=== PATIENT | female | born 1990 | race Caucasian/White ===

== ENCOUNTER 2017-09-26 10:23 | Emergency (ER) | payer MEDICAID, OTHER ==
[~2017-09-26] VITALS: Ht 162.6 cm; Wt 131.5 kg
[2017-09-26 10:24] VITALS: BP 132/76; PULSE 90; RESP 20; TEMP 98.7; O2SAT 100
--- NOTE | 2017-09-26 11:17 | PD ---
HPI Chief Complaint: Facial Pain or Swelling Time Seen by Provider: 11:02 Travel History International Travel<30 days: No Contact w/Intl Traveler<30days: No Traveled to known affect area: No History of Present Illness HPI 22-year-old female patient presents to the ER today because of a bump that appeared on her face in front of the left ear that started a few days ago. She denies any injury to the area, but states that she has had a lot of cough, sinus congestion, sore throat, and this has been going on for many weeks. She has been seen by [facility] and has been on intermittent antibiotics. She denies any recent fevers, ear pain, chest pains, shortness of breath, or any other symptoms. Modifying Factors: None Associated Signs & Symptoms: Bump in front the left ear Risk Factors: Cough, congestion symptoms for past weeks PFSH Past Medical History Medical History: Denies Significant Hx Cancer: No Cardiovascular Problems: No Diabetes: No Diminished Hearing: No Endocrine: Yes Gastrointestinal Disorders: Yes (gallstones; [address] ) Genitourinary: No Hepatitis: No Hiatal Hernia: No Immune Disorder: No Musculoskeletal: No Neurologic: No Psychiatric: Yes (ANXIETY DUE TO CHRONIC HEALTH CONCERNS) Reproductive: No Respiratory: No Immunizations Current: No Thyroid Disease: Yes (HYPOTHYROID - NO TREATMENT REQ'D ) ?: Not : 1 Para: 1 Past Surgical History Surgical History: No Previous Surgery Abdominal Surgery: Yes (lap chol; ERCP X4 ) AICD: No Body Medical Devices: 2 STENTS BILE DUCT Cardiac Surgery: No Ear Surgery: No Endocrine Surgery: No Eye Surgery: No Genitourinary Surgery: No Gynecologic Surgery: No Joint Replacement: No Oral Surgery: No Pacemaker: No Thoracic Surgery: No Other Surgery: Yes Social History Alcohol Use: No Tobacco Use: No Substance Use: No Allergies-Medications (Allergen,Severity, Reaction): Coded Allergies: No Known Allergies (Unverified , 08/22/16) Reported Meds & Prescriptions Reported Meds & Active Scripts Active No Active Prescriptions or Reported Medications Review of Systems Except as stated in HPI: all other systems reviewed are Neg Physical Exam Narrative GENERAL: Well-developed young obese white female patient currently in mild distress. Awake and oriented 3. SKIN: Focused skin assessment warm/dry. HEAD: Atraumatic. Normocephalic. There is a palpable 1 cm mildly tender mobile preauricular lymph node. No surrounding erythema. EYES: Pupils equal and round. No scleral icterus. No injection or drainage. EARS: Bilateral pinnae and external canals appear within normal limits. Bilateral tympanic membranes without erythema, dullness or perforation. ENT: Mucosa pink and moist. No erythema or exudates. No uvular edema. No uvular , palatal, or tonsillar deviation. Airway patent. NECK: Trachea midline. No JVD. No significant palpable lymphadenopathy. Supple. CARDIOVASCULAR: Regular rate and rhythm. No murmur appreciated. RESPIRATORY: No accessory muscle use. Clear to auscultation. Breath sounds equal bilaterally. GASTROINTESTINAL: Abdomen soft, non-tender, nondistended. Hepatic and splenic margins not palpable. MUSCULOSKELETAL: No obvious deformities. No clubbing. No cyanosis. No edema. NEUROLOGICAL: Awake and alert. No obvious cranial nerve deficits. Motor grossly within normal limits. Normal speech. PSYCHIATRIC: Appropriate mood and affect; insight and judgment normal. Data Data Last Documented VS Vital Signs Date Time Temp Pulse Resp B/P (MAP) Pulse Ox O2 Delivery O2 Flow Rate FiO2 09/26/17 10:24 98.7 90 20 132/76 (94) 100 Room Air MDM Medical Decision Making Medical Screen Exam Complete: Yes Emergency Medical Condition: Yes Medical Record Reviewed: Yes Differential Diagnosis Preauricular lymph nodes: Reactive lymphadenopathy versus pathologic lymphadenopathy versus abscess versus lipoma Narrative Course Narrative Course Considering the location of the lymph node and her current nasal congestion, sinus congestion, upper respiratory symptoms, I suspect that this is a reactive lymph node. My plan would be to treat her sinusitis symptoms and have her follow-up with primary care physician. Return for any worsening in pain, enlargement of the lymph node, or if it does not improve over the next weeks. The plan was discussed with her and she states understanding. Diagnosis Primary Impression: Reactive lymphadenopathy Additional Impression: Sinusitis Med/Other Pt SpecificInfo: Prescription(s) given Scripts Ibuprofen (Ibuprofen) 600 Mg Tab 600 MG PO Q6H Y for PAIN, #20 TAB 0 Refills Prov: Sabas Almanza MD 09/26/17 Amoxicillin-Clavulanate (Augmentin) 500-125 mg Tab 500 MG PO Q8H for Infection for 7 Days, TAB 0 Refills Prov: Sabas Almanza MD 09/26/17 Loratadine (Claritin) 10 Mg Cap 10 MG PO DAILY for Allergy Management for 7 Days, #7 CAP 0 Refills Prov: Sabas Almanza MD 09/26/17 Disposition: 01 DISCHARGE HOME Condition: Stable Sabas Almanza MD Sep 26, 2017 11:17
[2017-09-26] MEDS ORDERED: IBUP-232 PO (11:20)
[2017-09-26] MEDS ORDERED: AUGM500T7 PO (11:20)
[2017-09-26] MEDS ORDERED: CLAR10CA3 PO (11:20)
[2017-09-26 11:51] VITALS: BP 114/60; PULSE 86; RESP 16; O2SAT 100
== END 2017-09-26 11:52 | disposition home or self-care (01) ==
LOC: NEPD 10:23
DX: R59.1 Generalized enlarged lymph nodes (principal); J32.9 Chronic sinusitis, unspecified; F41.9 Anxiety disorder, unspecified; E03.9 Hypothyroidism, unspecified
CPT/HCPCS: 99283